=== PATIENT | male | born 1945 | race Two or more races ===

== ENCOUNTER 2025-10-21 21:49 | Inpatient (IN) | payer MEDICAID, SELFPAY ==
[2025-10-21 22:37] VITALS: BP 146/103; PULSE 108; RESP 18; TEMP 37.2; O2SAT 99; BMI 25.0
--- NOTE | 2025-10-21 22:47 | EKG_ITS ---
[facility] Test Date: 2025-10-21 Pat Name: ANUJ NEELY Department: Room: - Gender: Male Fur Tailor: : 1945 Requested By: Osbaldo Kirkland Order Number: [id number] Reading MD: Osbaldo Kirkland Measurements Intervals [place] Rate: 103 P: 184 SC: 195 QRS: 32 QRSD: 114 T: -10 QT: 341 QTc: 448 Interpretive Statements SINUS TACHYCARDIA WITH FREQUENT SUPRAVENTRICULAR PREMATURE COMPLEXES POSSIBLE LEFT ATRIAL ENLARGEMENT [-0.1mV P-WAVE IN V1/V2] MODERATE INTRAVENTRICULAR CONDUCTION DELAY [105+ ms QRS DURATION, 80+ ms Q/S IN V1/V2, NO Q AND 60+ ms R IN I/aVL/V5/V6] No previous ECG available for comparison /store/S0/[id number]
--- NOTE | 2025-10-21 22:47 | XR_ITS ---
EXAMINATION: PA chest single view TECHNIQUE: Upright PA chest single view Date and time: October 21, 2025, 11:12 p.m. INDICATIONS: Hypertension elevated blood pressure and tremors today. FINDINGS: Normal heart size Lungs are clear. Mild osteopenia IMPRESSION: No active disease
--- NOTE | 2025-10-21 22:48 | PD.EDRME ---
Rapid Medical Screening Exam E Arrival date/time: 10/21/25 21:49 80M with history of HTN and anxiety presents to ED with 2 days of elevated BP and tremors. Patient denies alcohol/drug use. Patient denies any pain. Chief Complaint: General Adult/Misc Complain Vital signs: Vital Signs Temperature 98.9 F 10/21/25 22:37 Pulse Rate 108 H 10/21/25 22:37 Respiratory Rate 18 10/21/25 22:37 Blood Pressure 146/103 H 10/21/25 22:37 Pulse Oximetry (%) 99 10/21/25 22:37 Oxygen Delivery Method Room Air 10/21/25 22:37 Exam: RRR. Very anxious. Tremors. Speech normal. Clinical Impression: anxiety/panic attack vs cardiac dysrhythmia vs alcohol/drug use vs electrolyte abnormality
[2025-10-21 23:17] LABS: Basophils # (Auto) 0.0 Thou/mm3 (0.0-0.2); Basophils % (Auto) 0 % (0-2.5); Eosinophils # (Auto) 0.1 Thou/mm3 (0.0-0.5); Eosinophils % (Auto) 1 % (0-10); Hematocrit 40.9 % (41.0-53.0); Hemoglobin 14.2 g/dL (13.5-16.0); Immature Granulocytes Auto 0.02 Thou/mm3 (0.00-0.00); Lymphocytes # (Auto) 1.5 Thou/mm3 (1.0-4.8); Lymphocytes % (Auto) 21 % (10-50); Mean Corpuscular HGB Conc 34.7 g/dl (31.0-37.0); Mean Corpuscular Hemoglobin 30.9 pg (25.0-35.0); Mean Corpuscular Volume 89 fL (80-100); Monocytes # (Auto) 0.5 Thou/mm3 (0.0-0.8); Monocytes % (Auto) 7 % (0-12); Neutrophils # (Auto) 4.8 Thou/mm3 (1.8-7.7); Neutrophils % (Auto) 69 % (37-80); Nucleated Red Blood Cell # 0.00 Thou/mm3 (0.00-0.00); Nucleated Red Blood Cell % 0 /100 WBC (0); Platelet Count 184 Thou/mm3 (140-440); RDW Standard Deviation 41.0 fL (35.1-43.9); Red Blood Count 4.59 Miln/mm3 (4.50-5.90); White Blood Count 6.9 Thou/mm3 (3.8-10.6)
[2025-10-21 23:46] LABS: Collection Type, Urine Clean Catch
[2025-10-21 23:56] LABS: Bilirubin,Urine Negative (Negative); Blood,Urine Negative (Negative); Clarity,Urine Clear (Clear/Hazy); Color,Urine Colorless (Lt Yel-Yel); Culture Indicated,Urine Not Indicated; Glucose, Urine Negative (Negative); Ketones,Urine Negative (Negative); Leukocyte Esterase,Urine Negative (Negative); Nitrite,Urine Negative (Negative); PH,Urine 6.5 (5.0-7.0); Protein,Urine Negative (Neg - Trace); RBC,Urine 1 /hpf (0-3); Specific Gravity,Urine 1.004 (1.001-1.035); Squamous Epithelial Cell,Urine < 1 /hpf (0-5); Urobilinogen,Urine Negative mg/dL (0.0-1.0); WBC,Urine < 1 /hpf (0-5)
[2025-10-22] VITALS (22 sets, daily range): BP systolic 111–155; BP diastolic 57–114; PULSE 63–123; RESP 14–97; TEMP 36.1–37.1; O2SAT 91–99
[2025-10-22 00:02] LABS: Amphetamine/Methamp Scrn,U Negative (Negative); Barbiturate Screen,Urine Negative (Negative); Benzodiazepines Screen,Urine Negative (Negative); Benzoylecgonine Screen, Ur Negative (Negative); Fentanyl Screen,Urine Negative (Negative); Opiate Screen,Urine Negative (Negative); THC Screen,Urine Negative (Negative)
[2025-10-22 00:02] LABS: Alanine Aminotransferase 23 U/L (10-49); Albumin, Serum 4.4 gm/dL (3.4-4.8); Albumin/Globulin Ratio 1.4 (1.2-2.2); Alcohol, Blood Medical < 3.0 mg/dL (0-10.0); Alkaline Phosphatase 83 U/L (46-116); Anion Gap 11 (7-16); Aspartate Amino Transferase 25 U/L (0-34); BUN/Creatinine Ratio 13 Ratio (12-20); Bilirubin,Total 0.6 mg/dL (0.3-1.2); Blood Urea Nitrogen 12 mg/dL (9-23); Calcium 9.2 mg/dL (8.3-10.6); Calcium (Corrected) 9.2 mg/dL (8.5-10.1); Carbon Dioxide 23.0 mMol/L (20.0-31.0); Chloride 104 mMol/L (98-107); Creatinine (Component) 0.9 mg/dL (0.6-1.3); Estimated Creatinine Clearance 53.9 mL/min (>60); Globulin 3.2 gm/dL (2.3-3.5); Glucose 115 mg/dL (74-106); Magnesium 2.1 mg/dL (1.6-2.6); Osmolality,Calculated 276 (275-295); Potassium 4.1 mMol/L (3.4-5.1); Sodium 138 mMol/L (136-145); Total Protein 7.6 gm/dL (5.7-8.2); Troponin I < 0.020 ng/mL (0.0-0.045); eGFR > 60 See Note
[2025-10-22] MEDS: DIAZEPAM 5 MG TABLET PO (00:21)
--- NOTE | 2025-10-22 00:57 | EDNOTE_ITS ---
ED General RME/HPI General Chief complaint: General Adult/Misc Complain Stated complaint: HIGH BP AND TREMORS Time Seen by Provider: 10/21/25 23:06 Arrival date/time: 10/21/25 21:49 RME / HPI RME / HPI narrative: 10/21/25 21:49 80M with history of HTN and anxiety presents to ED with 2 days of elevated BP and tremors. Patient denies alcohol/drug use. Patient denies any pain. DR. MCCOY MAIN ED EVALUATION: 80 y/o male with Hx of HTN and CAD presents to ED c/o sudden onset chills and suspected elevated blood pressure x approximately 6 hours. Denies BLACK, nausea, cough, runny nose, and chest pain. Patient recently returned from [facility] approximately 1.5 months ago. Patient currently takes Ativan, Amlodipine, Isosorbide, and Bystolic. Exam: RRR. Very anxious. Tremors. Speech normal. Impression: anxiety/panic attack vs cardiac dysrhythmia vs alcohol/drug use vs electrolyte abnormality Related Data Allergies Allergy/AdvReac Type Severity Reaction Status Date / Time No Known Allergies Allergy Verified 10/21/25 21:52 Review of Systems Review of Systems Systems Reviewed: All systems reviewed, normal except as documented Past Medical History Past Medical History CARDIAC: Positive Coronary Artery Disease and Hypertension ED Exam Narrative Physical exam: GEN. APPEARANCE: The patient is alert awake oriented X-3, lying down comfortably, does not look ill/toxic. Patient has good eye contact. Patient is cooperative. VITALS: All vitals were reviewed and the pulse ox is 97% on room air which is normal according to my interpretation. HEENT: Normocephalic, atraumatic. Pupils are equal and reactive. Oral mucosa is moist. Patent Nares NECK: Supple, nontender, no thyromegaly, no meningismus, no JVD CHEST: Symmetrical, atraumatic, and with equal expansion , Nontender on palpation no deformity and no crepitus. CARDIOVASCULAR: Heart regular rhythm no murmur or gallop rub or extra beats. LUNGS: Clear to auscultation bilaterally with symmetrical chest rise. No laboring tachypnea or wheezing. No intercostal subcostal retraction. No rales and no rhonchi. ABDOMEN: Soft, flat, nontender to palpation, no guarding or rebound tenderness. There are no abnormal masses palpated. Active and normal bowel sounds. EXTREMITIES: Nontender. BLE edema. No cyanosis. Patient is able to move all 4 extremities well, with full ROM and good CSM. SKIN: Warm and dry, no jaundice or rashes noted. MUSCULOSKELETAL: No lumbar or midline bony tenderness. There is no CVA tenderness. No paraspinal muscle spasm or tenderness. NEURO: Patient is THURSTON x 4, Cranial nerves II through XII grossly intact. There is no focal neurologic deficits noted. 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 Mild intention tremor to BUE, positive hand-flip, heel-toe. PSYCHIATRIC: Patient is in normal mood and affect. Course Quality Measures none Orders Category Date Time Status Bedside COVID-19 Antigen Test NOW Care 10/22/25 01:00 Active Bedside Influenza A&B Antigen Test NOW Care 10/22/25 01:[address] Screening NOW Care 10/22/25 02:57 Active EKG (ED ONLY) *Do not use* NOW Care 10/21/25 22:47 Completed EKG (ED ONLY) *Do not use* NOW Care 10/22/25 01:[address] head/brain wo con Stat Exams 10/22/25 00:58 Taken EKG (ED Only) Stat Exams 10/21/25 22:47 Draft EKG (ED Only) Stat Exams 10/22/25 01:00 Draft US venous doppler LE BI Stat Exams 10/22/25 03:00 Taken XR chest 1V portable Stat Exams 10/21/25 22:47 Completed Alcohol, Blood Medical Stat Lab 10/21/25 23:03 Completed BNP [B-Type Natriuretic Peptide] Stat Lab 10/22/25 00:00 Completed CBC Stat Lab 10/21/25 23:03 Completed Comprehensive Metabolic Panel Stat Lab 10/21/25 23:03 Completed D-Dimer Stat Lab 10/22/25 01:38 Completed Drug Screen,Urine Stat Lab 10/21/25 23:41 Completed Free T4 (Free Thyroxine) Stat Lab 10/22/25 01:38 Completed Magnesium Stat Lab 10/21/25 23:03 Completed TSH [Thyroid Stimulating Hormone] Stat Lab 10/22/25 01:38 Completed Troponin I Stat Lab 10/21/25 23:03 Completed Troponin I Stat Lab 10/22/25 01:38 Completed Urinalysis, C/S if Indicated Stat Lab 10/21/25 23:41 Completed Diazepam [Valium] Med 10/21/25 22:47 Discontinued 5 mg PO X1 ONE Vital Signs Vital signs: Vital Signs Temperature 98.9 F 10/21/25 22:37 Pulse Rate 108 H 10/21/25 22:37 Respiratory Rate 18 10/21/25 22:37 Blood Pressure 146/103 H 10/21/25 22:37 Pulse Oximetry (%) 99 10/21/25 22:37 Oxygen Delivery Method Room Air 10/21/25 22:37 Discharge Plan Plan Patient Disposition: Admit Acute Care w/in Hospital Problem List Clinical Impression: New onset atrial fibrillation, Tremor, Weakness MDM Narrative MDM hospital course (for use when minimal MDM required): Scribe Attestation: I, Kari Grant, am scribing for and in the presence of Dr. Mccoy. Provider Notation: Although this document has been carefully reviewed, there may still be some phonetic and other typographical errors. These errors are purely grammatical due to imperfections in the software program and should not be construed in any way to compromise the substance of the patient's medical care during this visit. Patient is an 80 yo male that is in the ED with concern for HTN, tremors, headache and feeling unwell. Vital signs and exam as listed. Prior provider evaluated patient. Labs EKG chest x-ray. Concern for ACS arrhythmia electrolyte abnormality metabolic disturbance. Given patient's age and tremors concern for acute intracranial pathology I added a CT of the brain. Initial labs without any acute hematologic or significant acute metabolic pathology. Troponin not elevated. EKG performed at 2305 notable for sinus rhythm, heart rate 103, frequent PVCs, normal intervals, nonspecific T wave changes, not a cardiac alert. Urinalysis and drug screen unremarkable. Chest x-ray with hyperinflation otherwise no other acute cardiopulmonary abnormalities. Ordered repeat troponin, also ordered repeat EKG. Ordered thyroid studies BNP. On my evaluation patient feeling better, concerned about his BP states that whenever his blood pressure gets elevated he gets similar symptoms but shakiness and just generally feeling unwell. States that since he arrived in [place] he has been generally feeling well. Today started feeling shaky, weak, symptoms that he usually gets when his blood pressure is elevated. He is on 3 blood pressure medications at home also has a history of hypothyroidism and takes levothyroxine. States he is very compliant with his medications. States he has a history of coronary artery disease status post stent placed many years ago. He follows very closely with his primary care doctor in [place]. Denies headache, chest pain, abdominal pain, dysuria hematuria, melena, bloody stools. No drugs or alcohol or smoking. Denies any back pain. CT brain without any acute intracranial abnormalities, troponin on 2 separate assessments normal, BNP is 270. Do not have a prior for comparison as patient does not live in the . Thyroid studies unremarkable. Repeat EKG performed at 219 in the morning, notable for atrial fibrillation, heart rate 88, normal QT, no ST elevations or depressions, not a cardiac alert, nonspecific T wave changes. Interpreted by me. Reevaluated patient, patient symptoms significantly improved. Clinical Information Provided by: patient and family (Nephew) Medical Records reviewed [facility] Medical Records additional comments: No prior ED records available for review. Meds/Rx considered, not ordered None Labs/Rad/Tests considered, not ordered None Chronic Illness/Social Conditions which may negatively complicate care or outcome(s)-explain: CHF/CAD/Cardiac illness EKG Interpretation EKG #1: EKG Interpretation: EKG done at 23:05, 103 bpm, frequent PVCs, normal intervals, non-specific T-wave changes, not a cardiac alert. - Interpreted by Dr. Adriana Mccoy EKG #2: EKG Interpretation: Repeat EKG performed at 02:19, notable for atrial fibrillation, heart rate 88, normal QT, no ST elevations or depressions, not a cardiac alert, nonspecific T wave changes. - Interpreted by Dr. Adriana Mccoy Labs Labs: interpreted by me and see narrative above Imaging Imaging interpretation: interpreted by me and see narrative above Imaging Interpretation(s): RADIOLOGY Chest X-Ray: FINDINGS: Normal heart size Lungs are clear. Mild osteopenia IMPRESSION: No active disease Head/Brain CT: Findings: There is no evidence of intracranial hemorrhage, mass effect or midline shift. There are periventricular white matter hypodensities, compatible with chronic small vessel ischemia. There is moderate volume loss. The calvarium is unre markable. The mastoid air cells and the visualized paranasal sinuses are clear. Impression: No evidence of intracranial hemorrhage, mass effect or midline shift. Periventricular chronic small vessel ischemia and volume loss. Aspect score 10. Medication Administration(s) Medication Administration History Acetaminophen (Acetaminophen 325 Mg Tablet) 650 mg PO Q6H PRN PRN Reason: Fever >100.4 Stop: 11/21/25 04:05 Amlodipine Besylate (Amlodipine Besylate 5 Mg Tablet) 5 mg PO DAILY FERNANDO Stop: 11/21/25 08:59 Aspirin (Aspirin Ec 81 Mg Tabec) 81 mg PO DAILY FERNANDO Stop: 11/21/25 08:59 Atorvastatin Calcium (Atorvastatin Calcium 10 Mg Tablet) 20 mg PO DAILY FERNANDO Stop: 11/21/25 08:59 Enoxaparin Sodium (Enoxaparin Sod Inj 100 Mg/Ml Syringe) 66 mg 1 mg/kg (66 mg) SC BID FERNANDO Stop: 11/05/25 08:59 Levothyroxine Sodium (Levothyroxine Sodium 100 Mcg Tablet) 100 mcg PO ACBR FERNANDO Stop: 11/21/25 05:59 Non-Formulary Medication (Nebivolol) 5 mg PO DAILY FERNANDO Stop: 11/21/25 08:59 Ondansetron HCl (Ondansetron Inj 2 Mg/Ml Inj 2 Ml) 4 mg IVP Q6H PRN; Protocol PRN Reason: NAUSEA OR VOMITING Stop: 11/21/25 04:05 Discontinued Medications Diazepam (Diazepam 5 Mg Tablet) 5 mg PO X1 ONE Stop: 10/21/25 22:48 Last Admin: 10/22/25 00:21 Dose: 5 mg Documented By: GEMA See above if any Consultations/Discussions re: Management Consult #1: Date/time: 10/22/25 02:59 am Physician, specialty, service, details: Discussed with Dr. Quiñonez for admission. Reviewed the patient?s HPI, PMHx, lab and/or radiology results. Discussed treatment plan. Will consult an admission to the hospitalist. Diagnosis Differential Diagnosis ED Complaint MDM: Viral Illness, Pneumonia, Hypertension, OK, Sepsis Diagnoses ruled out and/or further discussions: New onset Atrial Fibrillation, Tremor, Weakness
--- NOTE | 2025-10-22 00:58 | XR_ITS ---
Examination: CT brain head without contrast. 2-D sagittal coronal reconstructions Date and time of exam: October 22, 2025, 0119 hours INDICATIONS: Headache high blood pressure onset today CTDI: vol (mGy): 47.1 DLP: (mGycm): 915 Technique: Multiple CT axial sections of the brain have been obtained, 5 mm slice thickness. Contrast has not been administered. 2-D sagittal, coronal reconstructions have been obtained Low dose protocols were performed. One or more of the following dose reduction techniques were used; automated exposure control, adjustment of the mA and/or KV according to patient size, use of iterative reconstruction technique. Findings: No significant ventricular enlargement. Intra-axial or extra-axial hemorrhage density is not seen. No mass effect or midline shift Basal cisterns are not remarkable. Fourth ventricle is midline. Cranial vault intact. Impression: Negative for acute hemorrhage, mass effect or midline shift
--- NOTE | 2025-10-22 01:00 | EKG_ITS ---
[facility] Test Date: 2025-10-22 Pat Name: ANUJ NEELY Department: Room: - Gender: Male Manager Neonatal: : 1945 Requested By: Adriana Olson Order Number: [id number] Reading MD: Adriana Olson Measurements Intervals [place] Rate: 88 P: PA: QRS: 40 QRSD: 108 T: -16 QT: 379 QTc: 460 Interpretive Statements ATRIAL FIBRILLATION ANTEROSEPTAL MYOCARDIAL INFARCTION , OF INDETERMINATE AGE [40+ ms Q WAVE IN V1-V4] Compared to ECG 10/21/2025 23:05:32 Myocardial infarct finding now present Sinus tachycardia no longer present Intraventricular conduction delay no longer present /store/S0/[id number].pdf
[2025-10-22 01:48] LABS: B-Type Natriuretic Peptide 270 pg/mL (0-100)
--- NOTE | 2025-10-22 02:08 | PRELIM_ITS ---
CT scan of the head without intravenous contrast (axial sections with sagittal and coronal reformats) October 22, 2025 0119 hours Clinical history: Headache Comparison: None available at the time of this report. Findings: There is no evidence of intracranial hemorrhage, mass effect or midline shift. There are periventricular white matter hypodensities, compatible with chronic small vessel ischemia. There is moderate volume loss. The calvarium is unremarkable. The mastoid air cells and the visualized paranasal sinuses are clear. Impression: No evidence of intracranial hemorrhage, mass effect or midline shift. Periventricular chronic small vessel ischemia and volume loss. Aspect score 10. Report Electronically Signed By: Dennis Chen 10/22/2025 2:07:26 AM [EST]
[2025-10-22 02:10] LABS: Free T4 (Free Thyroxine) 1.37 ng/dL (0.89-1.76); Thyroid Stimulating Hormone 4.20 uIU/mL (0.55-4.78); Troponin I < 0.020 ng/mL (0.0-0.045)
--- NOTE | 2025-10-22 03:00 | XR_ITS ---
Examination: Venous duplex lower extremity sonogram, bilateral. Date and time of exam: October 22, 2025, 0404 hours INDICATIONS: High blood pressure today Technique: Multiple sonographic images of the deep venous system have been obtained. B-mode/2-D grayscale imaging of vascular structures and Doppler spectral analysis (waveforms) and color performed Both legs are examined. Findings: Deep venous systems do not demonstrate abnormal echogenicity. All visualized deep veins exhibit compressibility. All visualized deep veins exhibit augmentation. Impression: Negative for deep vein thrombosis
[2025-10-22 03:37] LABS: D-Dimer 434 ng/mL (<600)
--- NOTE | 2025-10-22 04:21 | ESHP_ITS ---
<Statement entered by Ja Gamez MD - 10/22/25 06:30> Patient is Czech-speaking, poor historian and translated with the help of cnc service engineer services on phone. A 80-year-old male with significant past medical history of hypertension, hyperlipidemia, CAD s/p PCI done almost 15 years ago by a doctor in [place] and follows with the doctor in [place] every 6 months. Reported that he flies every 6 months and does not follow any doctor in the [place]. Does not have any primary care provider. Next visit to the doctor in [place] is in February per patient. Reported that suddenly he felt that his blood pressure is increased and felt tremors following which he checked blood pressures and noted to be elevated and came to the ED for further evaluation. Denies any other complaints, including palpitation, shortness of breath. Vitals at the time of admission are significant for blood pressure 146/103 mmHg, pulse rate 108 bpm. Noted to have atrial fibrillation with controlled ventricular rate. Physical examination remains unremarkable. Labs at the time of admission are unremarkable. Urinalysis is not significant. Tested negative for drug screen. EKG showed atrial fibrillation. Head CT did not show any evidence of infarct. Bilateral venous Doppler was done that did not show any abnormality. Resume his home medications, patient using Nebivolol so just resumed it. Started on Lovenox for now and can later transition to oral anticoagulation. Echocardiogram is ordered. Will consult animal groomer. # New onset atrial fibrillation with controlled ventricular rate # History of CAD s/p PCI # Hypertension # Hyperlipidemia I have personally seen and examined the patient, agree with residents assessment and plan Patient plan of care was discussed with the attending physician, Dr. Brittney Gamez, PGY2 <Statement entered by Andriy Lugo DO - 10/22/25 06:15> Patient was seen and examined by me. After the review of the clinical data, I agree that the patient will need an admission on observation status for atrial fibrillation of unknown chronicity with associated symptoms of generalized tremors and lower extremity edema. Patient will undergo studies with echo in addition to monitoring of his heart rate and vitals to ensure safe discharge as the patient does not have close follow-up outpatient and sees a animal groomer in [place] every 6 months. Will benefit from an evaluation by cardiology inpatient. Patient could also benefit from a prescription of oral anticoagulants through a coupon or possibly samples from cardiology as he does not have insurance at this time. Plan of care discussed with patient who is in agreement. I Andriy Lugo DO, attest that I was physically present for dominique portions of evaluation, examined the patient, reviewed the labs and imaging, and discussed the plan of care and management with the residents team. I agree with the findings and plans documented above. Documentation for date of: 10/22/25 [facility] History of Present Illness History of present illness: HPI: 80-year-old Czech-speaking male past medical history of hypertension, hyperlipidemia, coronary artery disease status post stent placement 10-15 years ago, and hypothyroidism presented to the ED the evening of 10/21/2025 with chief complaint of tremors and hypertension. Patient is a poor historian. He described a 2-day history of feeling like his blood pressure was elevated with associated tremors in his hands. He denied chest pain, palpitations, shortness of breath, or syncopal events. He has never had feelings like this before. He was found to have atrial fibrillation on EKG with a rate of 88 and QTc of 460. 2 separate troponin readings were negative. Of note, the patient sees a animal groomer in [place] every 6 months and his next appointment is in February 2026. The patient was concerned about his cost of treatment and his ability to follow-up outpatient. He has no established outpatient doctor in the . It was explained to the patient that he may require anticoagulation and that evaluation by a animal groomer during this visit would be in his best interest. The patient agreed to be admitted. Patient was admitted for new onset A-fib. ED Course: * Significant vitals on arrival: BP 146/103, pulse 108, remainder vitals within normal parameters * Significant labs: Glucose 115, BNP 270 * Imaging: EKG showed atrial fibrillation on EKG with a rate of 88 and QTc of 460. Head CT pending official read. Venous Doppler lower extremity pending official read. * ED intervention: Patient received a one-time dose of diazepam 5 mg oral History: * Past medical history: As above in HPI * Surgical history: Stent placement in [place] 10-15 years ago, previous hernia repair * Social history: Occasional alcohol, denies tobacco or illicit drug use. Allergies: * No known drug allergies. Home Medications: (Pending Med Rec) * Amlodipine 5 mg daily * Aspirin 81 mg daily * Atorvastatin 20 mg daily * Levothyroxine 100 mcg daily * Nebivolol 5 mg daily CODE STATUS: Full Code Review of Systems Review of Systems Narrative Review of Systems: Review of Systems: * General: Denies fevers, chills. * HEENT: Denies headache, congestion, or sore throat. * Cardiac: Patient describes a 2-day history of feeling like his blood pressure was elevated with associated tremors in his hands. Denies chest pain or palpitations. * Pulmonary: Denies shortness of breath or cough. * GI: Denies nausea, vomiting, diarrhea, constipation, melena, or hematochezia. * : Denies dysuria, hematuria, frequency, or urgency. * MSK: Denies pain in the extremities, joints, or myalgias. * Neuro: Denies weakness, numbness, vision changes, or speech difficulty. Exam Vital Signs Temp Pulse Resp BP Pulse Ox O2 Del Method 98.1 F 93 18 127/87 H 97 Room Air 10/22/25 03:36 10/22/25 03:36 10/22/25 03:36 10/22/25 03:36 10/22/25 03:36 10/22/25 03:36 Narrative Exam General: Awake and in no acute distress. Conversational and non-toxic appearing. Neurologic: GCS 15. Alert and oriented x3, no gross neurological deficit, and patient able to move all 4 extremities. HEENT: Normocephalic, atraumatic, mucous membranes moist. Pupils reactive to light. Heart: Irregular rhythm, tachycardic rate 100-110, normal S1 and S2, no murmurs. Lungs: Clear to auscultation bilaterally with no wheezing or crackles. Abdomen: Soft, nondistended, nontender, positive bowel sounds. No guarding or rebound tenderness. Extremities: No edema. 2+ radial and dorsalis pedis pulses bilaterally. Skin: Warm. Dry. No rash or ecchymoses. Results: Labs 10/22/25 04:47 10/22/25 04:47 Labs: Short CBC 10/21/25 Range/Units 23:03 WBC 6.9 (3.8-10.6) Thou/mm3 Hgb 14.2 (13.5-16.0) g/dL Hct 40.9 L (41.0-53.0) % Plt Count 184 (140-440) Thou/mm3 BMP 10/21/25 23:03 Sodium 138 Potassium 4.1 Chloride 104 Carbon Dioxide 23.0 BUN 12 Creatinine 0.9 Glucose 115 H Calcium 9.2 Cardiac Enzymes 10/21/25 10/22/25 Range/Units 23:03 01:38 Troponin I < 0.020 < 0.020 (0.0-0.045) ng/mL Liver Function 10/21/25 Range/Units 23:03 Total Bilirubin 0.6 (0.3-1.2) mg/dL AST 25 (0-34) U/L ALT 23 (10-49) U/L Alkaline Phosphatase 83 (46-116) U/L Albumin 4.4 (3.4-4.8) gm/dL Urine 10/21/25 Range/Units 23:41 Urine Color Colorless A (Lt Yel-Yel) Urine Clarity Clear (Clear/Hazy) Urine pH 6.5 (5.0-7.0) Ur Specific [place] 1.004 (1.001-1.035) Urine Protein Negative (Neg - Trace) Urine Glucose (UA) Negative (Negative) Quality Measures Quality Measures none Advance care planning discussed with:: patient Medications Home Medications and Allergies Allergies Allergy/AdvReac Type Severity Reaction Status Date / Time No Known Allergies Allergy Verified 10/21/25 21:52 Visit Medications Acetaminophen (Acetaminophen 325 Mg Tablet) 650 mg PO Q6H PRN PRN Reason: Fever >100.4 Stop: 11/21/25 04:05 Amlodipine Besylate (Amlodipine Besylate 5 Mg Tablet) 5 mg PO DAILY FERNANDO Stop: 11/21/25 08:59 Aspirin (Aspirin Ec 81 Mg Tabec) 81 mg PO DAILY FERNANDO Stop: 11/21/25 08:59 Atorvastatin Calcium (Atorvastatin Calcium 10 Mg Tablet) 20 mg PO DAILY FERNANDO Stop: 11/21/25 08:59 Enoxaparin Sodium (Enoxaparin Sod Inj 100 Mg/Ml Syringe) 66 mg 1 mg/kg (66 mg) SC BID FERNANDO Stop: 11/05/25 08:59 Levothyroxine Sodium (Levothyroxine Sodium 100 Mcg Tablet) 100 mcg PO DAILY FERNANDO Stop: 11/21/25 08:59 Non-Formulary Medication (Nebivolol) 5 mg PO DAILY FERNANDO Stop: 11/21/25 08:59 Ondansetron HCl (Ondansetron Inj 2 Mg/Ml Inj 2 Ml) 4 mg IVP Q6H PRN; Protocol PRN Reason: NAUSEA OR VOMITING Stop: 11/21/25 04:05 Discontinued Medications Diazepam (Diazepam 5 Mg Tablet) 5 mg PO X1 ONE Stop: 10/21/25 22:48 Last Admin: 10/22/25 00:21 Dose: 5 mg Assessment & Plan Plan Summary: 80-year-old Czech-speaking male past medical history of hypertension, hyperlipidemia, coronary artery disease status post stent placement 10-15 years ago, and hypothyroidism presented to the ED the evening of 10/21/2025 with chief complaint of tremors and hypertension. Patient is a poor historian. He described a 2-day history of feeling like his blood pressure was elevated with associated tremors in his hands. He denied chest pain, palpitations, shortness of breath, or syncopal events. He has never had feelings like this before. He was found to have atrial fibrillation on EKG with a rate of 88 and QTc of 460. 2 separate troponin readings were negative. Patient was admitted for new onset A-fib. #New Onset A-fib * Patient presented with a 2-day history of feeling hypertensive with associated tremors * Patient has never had episodes like this before * Regarding potential triggers: * Pulmonary causes like COPD low on differential, patient never smoked, no wheezing on exam, though a chest x-ray was not performed * Ischemia/infarction is also an unlikely trigger, the patient has no chest pain or exertional dyspnea and there are no ST segment changes on EKG * Patient mentioned occasional alcohol use, may be considered a trigger but his alcohol level is negative * May consider thyroid medication overdose * Consider sleep apnea * Consider longstanding risk factors like hypertension and coronary artery disease * [id number] score is at least 3, strong evidence of benefit with anticoagulation * Age over 75 (+2) * Hypertension history (+1) * Follow-up coagulation data for HAS-BLED score Plan: * Therapeutic Lovenox: 1 mg/kg subcu every 12 hours * Cardiology consult * Echo #Hypertension * Per patient history * Longstanding issue may be contributing to patient's new onset A-fib * Presented with hypertension stage II 146/103 Plan: * Amlodipine 5 mg daily * Nebivolol 5 mg daily #Hypothyroidism * Per patient history * Patient takes levothyroxine * TSH 4.2, free T4 1.37 Plan: * Restarted home levothyroxine 100 mcg daily #Hyperlipidemia * Per patient history Plan: * Atorvastatin 20 mg daily * Lipid panel ordered #Coronary artery disease status post stent placement * Patient mentions that he had a stent placed in his heart in [place] 10-15 years ago * Currently takes aspirin and follows animal groomer in [place], next appointment is in February 2026 Plan: * Aspirin 81 mg daily #Lower extremity swelling? * ED physician had concern for lower extremity swelling, ordered lower extremity venous Doppler to rule out DVT Plan: * Follow-up results of lower extremity venous Doppler Hospital Maintenance: DVT ppx: Therapeutic Lovenox 1 mg/kg SQ every 12 hours Diet: Cardiac diet IV lines: Peripheral IVs Code status: Full code Dispo: Telemetry monitoring for, admitted for new onset A-fib, pending cardiology recs, started on therapeutic anticoagulation. Patient was seen and discussed with my attending physician Dr. Brittney VASQUEZ and my senior resident Dr. Vera PARKER PGY-2. Raymundo Maddox DO PGY-1.
--- NOTE | 2025-10-22 04:21 | PD.RESHP ---
Documentation for date of: 10/22/25 [facility] History of Present Illness History of present illness: HPI: 80-year-old Prydein[place]-speaking male past medical history of hypertension, hyperlipidemia, coronary artery disease status post stent placement 10-15 years ago, and hypothyroidism presented to the ED the evening of 10/21/2025 with chief complaint of tremors and hypertension. Patient is a poor historian. He described a 2-day history of feeling like his blood pressure was elevated with associated tremors in his hands. He denied chest pain, palpitations, shortness of breath, or syncopal events. He has never had feelings like this before. He was found to have atrial fibrillation on EKG with a rate of 88 and QTc of 460. 2 separate troponin readings were negative. Of note, the patient sees a toy assembly supervisor in [place] every 6 months and his next appointment is in February 2026. The patient was concerned about his cost of treatment and his ability to follow-up outpatient. He has no established outpatient doctor in the . It was explained to the patient that he may require anticoagulation and that evaluation by a toy assembly supervisor during this visit would be in his best interest. The patient agreed to be admitted. Patient was admitted for new onset A-fib. ED Course: Significant vitals on arrival: BP 146/103, pulse 108, remainder vitals within normal parameters Significant labs: Glucose 115, BNP 270 Imaging: EKG showed atrial fibrillation on EKG with a rate of 88 and QTc of 460. Head CT pending official read. Venous Doppler lower extremity pending official read. ED intervention: Patient received a one-time dose of diazepam 5 mg oral History: Past medical history: As above in HPI Surgical history: Stent placement in [place] 10-15 years ago, previous hernia repair Social history: Occasional alcohol, denies tobacco or illicit drug use. Allergies: No known drug allergies. Home Medications: (Pending Med Rec) Amlodipine 5 mg daily Aspirin 81 mg daily Atorvastatin 20 mg daily Levothyroxine 100 mcg daily Nebivolol 5 mg daily CODE STATUS: Full Code Review of Systems Review of Systems Narrative Review of Systems: Review of Systems: General: Denies fevers, chills. HEENT: Denies headache, congestion, or sore throat. Cardiac: Patient describes a 2-day history of feeling like his blood pressure was elevated with associated tremors in his hands. Denies chest pain or palpitations. Pulmonary: Denies shortness of breath or cough. GI: Denies nausea, vomiting, diarrhea, constipation, melena, or hematochezia. : Denies dysuria, hematuria, frequency, or urgency. MSK: Denies pain in the extremities, joints, or myalgias. Neuro: Denies weakness, numbness, vision changes, or speech difficulty. Exam Vital Signs Temp Pulse Resp BP Pulse Ox O2 Del Method 98.1 F 93 18 127/87 H 97 Room Air 10/22/25 03:36 10/22/25 03:36 10/22/25 03:36 10/22/25 03:36 10/22/25 03:36 10/22/25 03:36 Narrative Exam General: Awake and in no acute distress. Conversational and non-toxic appearing. Neurologic: GCS 15. Alert and oriented x3, no gross neurological deficit, and patient able to move all 4 extremities. HEENT: Normocephalic, atraumatic, mucous membranes moist. Pupils reactive to light. Heart: Irregular rhythm, tachycardic rate 100-110, normal S1 and S2, no murmurs. Lungs: Clear to auscultation bilaterally with no wheezing or crackles. Abdomen: Soft, nondistended, nontender, positive bowel sounds. No guarding or rebound tenderness. Extremities: No edema. 2+ radial and dorsalis pedis pulses bilaterally. Skin: Warm. Dry. No rash or ecchymoses. Results: Labs 10/22/25 04:47 10/22/25 04:47 Labs: Short CBC 10/21/25 Range/Units 23:03 WBC 6.9 (3.8-10.6) Thou/mm3 Hgb 14.2 (13.5-16.0) g/dL Hct 40.9 L (41.0-53.0) % Plt Count 184 (140-440) Thou/mm3 BMP 10/21/25 23:03 Sodium 138 Potassium 4.1 Chloride 104 Carbon Dioxide 23.0 BUN 12 Creatinine 0.9 Glucose 115 H Calcium 9.2 Cardiac Enzymes 10/21/25 10/22/25 Range/Units 23:03 01:38 Troponin I < 0.020 < 0.020 (0.0-0.045) ng/mL Liver Function 10/21/25 Range/Units 23:03 Total Bilirubin 0.6 (0.3-1.2) mg/dL AST 25 (0-34) U/L ALT 23 (10-49) U/L Alkaline Phosphatase 83 (46-116) U/L Albumin 4.4 (3.4-4.8) gm/dL Urine 10/21/25 Range/Units 23:41 Urine Color Colorless A (Lt Yel-Yel) Urine Clarity Clear (Clear/Hazy) Urine pH 6.5 (5.0-7.0) Ur Specific [place] 1.004 (1.001-1.035) Urine Protein Negative (Neg - Trace) Urine Glucose (UA) Negative (Negative) Quality Measures Quality Measures none Advance care planning discussed with:: patient Medications Home Medications and Allergies Allergies Allergy/AdvReac Type Severity Reaction Status Date / Time No Known Allergies Allergy Verified 10/21/25 21:52 Visit Medications Acetaminophen (Acetaminophen 325 Mg Tablet) 650 mg PO Q6H PRN PRN Reason: Fever >100.4 Stop: 11/21/25 04:05 Amlodipine Besylate (Amlodipine Besylate 5 Mg Tablet) 5 mg PO DAILY FERNANDO Stop: 11/21/25 08:59 Aspirin (Aspirin Ec 81 Mg Tabec) 81 mg PO DAILY FERNANDO Stop: 11/21/25 08:59 Atorvastatin Calcium (Atorvastatin Calcium 10 Mg Tablet) 20 mg PO DAILY FERNANDO Stop: 11/21/25 08:59 Enoxaparin Sodium (Enoxaparin Sod Inj 100 Mg/Ml Syringe) 66 mg 1 mg/kg (66 mg) SC BID FERNADNO Stop: 11/05/25 08:59 Levothyroxine Sodium (Levothyroxine Sodium 100 Mcg Tablet) 100 mcg PO DAILY FERNANDO Stop: 11/21/25 08:59 Non-Formulary Medication (Nebivolol) 5 mg PO DAILY FERNANDO Stop: 11/21/25 08:59 Ondansetron HCl (Ondansetron Inj 2 Mg/Ml Inj 2 Ml) 4 mg IVP Q6H PRN; Protocol PRN Reason: NAUSEA OR VOMITING Stop: 11/21/25 04:05 Discontinued Medications Diazepam (Diazepam 5 Mg Tablet) 5 mg PO X1 ONE Stop: 10/21/25 22:48 Last Admin: 10/22/25 00:21 Dose: 5 mg Assessment & Plan Plan Summary: 80-year-old Prydeinig-speaking male past medical history of hypertension, hyperlipidemia, coronary artery disease status post stent placement 10-15 years ago, and hypothyroidism presented to the ED the evening of 10/21/2025 with chief complaint of tremors and hypertension. Patient is a poor historian. He described a 2-day history of feeling like his blood pressure was elevated with associated tremors in his hands. He denied chest pain, palpitations, shortness of breath, or syncopal events. He has never had feelings like this before. He was found to have atrial fibrillation on EKG with a rate of 88 and QTc of 460. 2 separate troponin readings were negative. Patient was admitted for new onset A-fib. #New Onset A-fib Patient presented with a 2-day history of feeling hypertensive with associated tremors Patient has never had episodes like this before Regarding potential triggers: Pulmonary causes like COPD low on differential, patient never smoked, no wheezing on exam, though a chest x-ray was not performed Ischemia/infarction is also an unlikely trigger, the patient has no chest pain or exertional dyspnea and there are no ST segment changes on EKG Patient mentioned occasional alcohol use, may be considered a trigger but his alcohol level is negative May consider thyroid medication overdose Consider sleep apnea Consider longstanding risk factors like hypertension and coronary artery disease [id number] score is at least 3, strong evidence of benefit with anticoagulation Age over 75 (+2) Hypertension history (+1) Follow-up coagulation data for HAS-BLED score Plan: Therapeutic Lovenox: 1 mg/kg subcu every 12 hours Cardiology consult Echo #Hypertension Per patient history Longstanding issue may be contributing to patient's new onset A-fib Presented with hypertension stage II 146/103 Plan: Amlodipine 5 mg daily Nebivolol 5 mg daily #Hypothyroidism Per patient history Patient takes levothyroxine TSH 4.2, free T4 1.37 Plan: Restarted home levothyroxine 100 mcg daily #Hyperlipidemia Per patient history Plan: Atorvastatin 20 mg daily Lipid panel ordered #Coronary artery disease status post stent placement Patient mentions that he had a stent placed in his heart in [place] 10-15 years ago Currently takes aspirin and follows toy assembly supervisor in [place], next appointment is in February 2026 Plan: Aspirin 81 mg daily #Lower extremity swelling? ED physician had concern for lower extremity swelling, ordered lower extremity venous Doppler to rule out DVT Plan: Follow-up results of lower extremity venous Doppler Hospital Maintenance: DVT ppx: Therapeutic Lovenox 1 mg/kg SQ every 12 hours Diet: Cardiac diet IV lines: Peripheral IVs Code status: Full code Dispo: Telemetry monitoring for, admitted for new onset A-fib, pending cardiology recs, started on therapeutic anticoagulation. Patient was seen and discussed with my attending physician Dr. Brittney VASQUEZ and my senior resident Dr. Vera PARKER PGY-2. Raymundo Maddox DO PGY-1.
[2025-10-22 05:00] LABS: Basophils # (Auto) 0.0 Thou/mm3 (0.0-0.2); Basophils % (Auto) 0 % (0-2.5); Eosinophils # (Auto) 0.1 Thou/mm3 (0.0-0.5); Eosinophils % (Auto) 1 % (0-10); Hematocrit 41.2 % (41.0-53.0); Hemoglobin 14.0 g/dL (13.5-16.0); Immature Granulocytes Auto 0.02 Thou/mm3 (0.00-0.00); Lymphocytes # (Auto) 1.6 Thou/mm3 (1.0-4.8); Lymphocytes % (Auto) 22 % (10-50); Mean Corpuscular HGB Conc 34.0 g/dl (31.0-37.0); Mean Corpuscular Hemoglobin 30.2 pg (25.0-35.0); Mean Corpuscular Volume 89 fL (80-100); Monocytes # (Auto) 0.5 Thou/mm3 (0.0-0.8); Monocytes % (Auto) 6 % (0-12); Neutrophils # (Auto) 5.2 Thou/mm3 (1.8-7.7); Neutrophils % (Auto) 70 % (37-80); Nucleated Red Blood Cell # 0.00 Thou/mm3 (0.00-0.00); Nucleated Red Blood Cell % 0 /100 WBC (0); Platelet Count 189 Thou/mm3 (140-440); RDW Standard Deviation 40.8 fL (35.1-43.9); Red Blood Count 4.64 Miln/mm3 (4.50-5.90); White Blood Count 7.4 Thou/mm3 (3.8-10.6)
--- NOTE | 2025-10-22 05:04 | PRELIM_ITS ---
Bilateral lower extremity venous Doppler ultrasound with wave Doppler spectral analysis. October 22, 2025 0404 hours Clinical history: DVT Technique: Duplex scan of the bilateral lower extremity deep venous systems was performed utilizing 2D grayscale imaging, Doppler spectral analysis, and color flow Doppler with compression. Comparison: No prior study is available for comparison available at the time of this report. Findings: Combs scale, color flow, and spectral Doppler evaluation of the lower extremity deep veins was performed. Right: The common femoral, superficial femoral, and popliteal veins are patent and compressible. Normal respiratory variation is noted. There is no evidence of occlusive or nonocclusive thrombus. The great saphenous vein is patent at the level of the saphenofemoral junction. Left: The common femoral, superficial femoral, and popliteal veins are patent and compressible. Normal respiratory variation is noted. There is no evidence of occlusive or nonocclusive thrombus. The great saphenous vein is patent at the level of the saphenofemoral junction. Impression: No sonographic evidence of deep venous thrombosis in both lower extremities. Report Electronically Signed By: Dennis Chen 10/22/2025 5:03:46 AM [EST]
[2025-10-22 05:21] LABS: Alanine Aminotransferase 20 U/L (10-49); Albumin, Serum 4.5 gm/dL (3.4-4.8); Albumin/Globulin Ratio 1.6 (1.2-2.2); Alkaline Phosphatase 85 U/L (46-116); Anion Gap 11 (7-16); Aspartate Amino Transferase 20 U/L (0-34); BUN/Creatinine Ratio 11 Ratio (12-20); Bilirubin,Total 0.9 mg/dL (0.3-1.2); Blood Urea Nitrogen 10 mg/dL (9-23); Calcium 8.8 mg/dL (8.3-10.6); Calcium (Corrected) 8.8 mg/dL (8.5-10.1); Carbon Dioxide 24.3 mMol/L (20.0-31.0); Cardiac Risk Estimate 2.2 RATIO (4.0-6.7); Chloride 110 mMol/L (98-107); Cholesterol 123 mg/dL (132-200); Creatinine (Component) 0.9 mg/dL (0.6-1.3); Estimated Creatinine Clearance 53.9 mL/min (>60); Globulin 2.8 gm/dL (2.3-3.5); Glucose 110 mg/dL (74-106); HDL Cholesterol 55 mg/dL (40-60); LDL Cholesterol,Calculated 59 mg/dL (0-130); Magnesium 2.2 mg/dL (1.6-2.6); Osmolality,Calculated 288 (275-295); Potassium 3.7 mMol/L (3.4-5.1); Sodium 145 mMol/L (136-145); Thyroid Stimulating Hormone 4.02 uIU/mL (0.55-4.78); Total Protein 7.3 gm/dL (5.7-8.2); Triglycerides 47 mg/dL (30-150); eGFR > 60 See Note
[2025-10-22 06:06] LABS: INR 1.0 (0.9-1.3); Partial Thromboplastin Time 26.9 Seconds (22.0-36.0); Prothrombin Time 11.1 Seconds (9.0-12.2)
--- NOTE | 2025-10-22 06:33 | ECHO_ITS ---
Patient Info Name: Jose Solitario Age: 80 years : 1945 Gender: Male Ht: 163 cm Wt: 66 kg BSA: 1.74 m2 BP: 136 / 91 mmHg HR: 86 bpm Heart Rhythm: Atrial Fibrillation Exam Date: 10/22/2025 4:35 PM Admit Date: 10/22/2025 Site: [facility] Room Number: [id number] Patient Status: I Exam Type: CA echo doppler complete Historical Interpreter: Stephanie Dorman Ordering Physician: Ja Gamez Study Info Indications New onset afib - Primary Location: S2NX Left Ventricular Outflow Tract Name Value Normal LVOT 2D LVOT Diameter 1.9 cm LVOT Doppler LVOT Peak Velocity 62 cm/s LVOT Mean Gradient 1 mmHg LVOT VTI 12 cm LVOT VTI/AV VTI Ratio 0.7 LVOT Stroke Volume 33 ml Pulmonic Valve Name Value Normal PV Doppler PV Peak Velocity 75 cm/s PV Regurgitation Doppler DC Peak End Diastolic Velocity 179 cm/s Mitral Valve Name Value Normal MV Doppler MV Mean Gradient [address] [facility] 752 cm/s2 MV PHT 38 ms MV Area (PHT) 5.8 cm2 4.0-5.0 MV Area (Cont Eq VTI) 1.2 cm2 MV Diastolic Function MV E Peak Velocity 98 cm/s Tricuspid Valve Name Value Normal TV Regurgitation Doppler TR Peak Velocity 199 cm/s Estimated PAP/RSVP RA Pressure 3 mmHg <=5 PA Systolic Pressure 19 mmHg <36 RV Systolic Pressure 19 mmHg <36 Aortic Valve Name Value Normal AV 2D/MM AV Cusp Sep (MM) 0.9 cm AV Doppler AV Peak Velocity 112 cm/s AV Mean Gradient 3 mmHg AV VTI 18 cm AV Area (Cont Eq VTI) 1.9 cm2 >=3.0 AV Area (Cont Eq Stan) 1.6 cm2 AV DI (Stan) 0.55 AV Regurgitation 2D LVOT Area 2.8 cm2 AV Regurgitation Doppler AR Decel [facility] 138 cm/s2 AR PHT 514 ms Ventricles Name Value Normal LV Dimensions 2D/MM IVS Diastolic Thickness (2D) 1.1 cm 0.6-1.0 LVID Diastole (2D) 4.8 cm 4.2-5.8 LVIW Diastolic Thickness (2D) 1.1 cm 0.6-1.0 LVID Systole (2D) 3.0 cm 2.5-4.0 LVOT Diameter 1.9 cm LV Mass (2D Cubed) 193.96 g 88.00-224.00 LV Mass Index (2D Cubed) 111 g/m2 49-115 Relative Wall Thickness (2D) 0.46 <=0.42 IVS/LVIW Diastolic Thickness (2D) 1.00 0.00-1.50 LV Fractional Shortening/Ejection Fraction 2D/MM LV Fractional Shortening (2D) 38 % 25-43 LV EF (2D Teichholz) 67 % LV Diastolic Volume (4C MOD) 66 ml LV EF (4C MOD) 55 % LV Diastolic Volume (2C MOD) 87 ml LV EF (2C MOD) 58 % LV Diastolic Volume (BP MOD) 75 ml 62-150 LV Diastolic Volume Index (BP MOD) 43 ml/m2 34-74 LV Systolic Volume (BP MOD) 34 ml 21-61 LV Systolic Volume Index (BP MOD) 20 ml/m2 11-31 LV EF (BP MOD) 54 % 52-72 LV Diastolic Length (4C) 7.4 cm LV Systolic Length (4C) 6.2 cm LV Stroke Volume (4C MOD) 36 ml Atria Name Value Normal LA Dimensions LA Volume (4C A-L) 52 ml LA Volume (BP A-L) 70 ml Left Ventricle Left ventricular chamber dimension is normal. Left ventricular systolic function is normal with visually estimated ejection fraction of 55-60%. There is mild concentric hypertrophy noted in the left ventricle. Left ventricular segmental wall motion is normal. There is indeterminate diastolic function in the left ventricle. Right Ventricle Right ventricular chamber dimension is mildly enlarged. Right ventricular systolic function is normal. Flattening of the ventricular septum in mid to late systole consistent with right ventricular volume overload. Left Atrium Left atrial chamber dimension is mildly enlarged. Right Atrium Right atrial chamber dimension is normal. Aortic Valve The aortic valve is trileaflet. There is mild aortic valve sclerosis. There is no aortic valve stenosis with a peak velocity of 112 cm/s, mean gradient of 3 mmHg, and aortic valve area of 1.9 cm2. There is mild aortic valve regurgitation. Pulmonic Valve The pulmonic valve is normal. There is no pulmonic valve stenosis. There is trace pulmonic regurgitation. Mitral Valve The mitral valve has thickened leaflets. There is no mitral valve stenosis. There is mild to moderate mitral valve regurgitation. Tricuspid Valve The tricuspid valve leaflets are normal. There is no tricuspid valve stenosis. There is mild tricuspid valve regurgitation. No pulmonary hypertension, estimated pulmonary arterial systolic pressure is 19 mmHg and systemic blood pressure of 136 mmHg in systole. Pericardium/Pleural The pericardium appears normal. There is no pericardial effusion. No pleural effusion visualized. Inferior Vena Cava Normal inferior vena cava with >50% collapse upon inspiration consistent with normal right atrial pressure, 3 mmHg. Aorta The aortic measurements are indexed to age and body surface area. The aortic root at the sinus of Valsalva is not well visualized. The prox ascending aorta is not well visualized. Summary 1. Left ventricle size is normal and systolic function is normal. Estimated ejection fraction is 55-60%. There is indeterminate diastolic function. There is mild concentric hypertrophy noted. 2. Right ventricle chamber size is mildly enlarged and systolic function is normal. Estimated RVSP is 19 mmHg. 3. Flattening of the ventricular septum in mid to late systole consistent with right ventricular volume overload. 4. There is mild aortic valve sclerosis with no stenosis and mild regurgitation. 5. There is mild to moderate mitral valve regurgitation. Mitral valve thickening. 6. There is mild tricuspid valve regurgitation and trace Pulmonic regurgitation. 7. The left atrium is mildly enlarged. The right atrium is normal. 8. Normal IVC with estimated RA pressure 3 mmHg. Report Signatures Finalized by Bogdan Schofield on 10/22/2025 11:20 PM
[2025-10-22] MEDS: LEVOTHYROXINE SODIUM 100 MCG TABLET PO (07:50)
[2025-10-22] MEDS: ASPIRIN EC 81 MG TABEC PO (09:18)
[2025-10-22] MEDS: METOPROLOL SUCCINATE XL 25 MG TABCR PO (09:18)
[2025-10-22] MEDS: ATORVASTATIN CALCIUM 10 MG TABLET 20 MG PO (09:19)
[2025-10-22] MEDS: ENOXAPARIN SOD INJ 100 MG/ML SYRINGE 66 MG SC (09:20)
--- NOTE | 2025-10-22 09:38 | PC.NURSE ---
CALLED DR IVERSON TO NOTIFY PATIENT'S HEART RYTHYM CHANGED TO A FLUTTER. NO FURTHER ORDERS. PATIENT DENIES CHEST PAIN
--- NOTE | 2025-10-22 11:38 | PC.NURSE ---
CALLED DR. IVERSON TO NOTIFY PATIENT IS STATING HIS LEFT CHEST IS HAVING SOME PRESSURE. PATIENT STATES HE ALSO FELT SOME PALPITATIONS. NO NEW ORDERS RECEIVED. PATIENT'S HEART RATE STILL 90'S AND RHYTHM A FLUTTER.
--- NOTE | 2025-10-22 12:40 | ESPR_ITS ---
<Statement entered by Rodriguez Ta MD - 10/22/25 14:25> Overnight admission for new onset A-fib. Seen and examined at bedside in ED and patient resting comfortably in bed. Denies any chest pain, shortness of breath. Vital signs stable and heart rate less than 110, on room air, and afebrile. CBC unremarkable, CHEM panel largely unremarkable. Cardiology consulted and will follow-up recommendations. Echo ordered and will follow-up with results. Not requiring any rate controlling medications at this time and has not received any since coming to the ED or since admission. ----- Note reviewed and agree with care plan as documented. Please refer to the note below for further details. Plan discussed with attending physician Dr. Jatinder Ta MD PGY-2 Internal Medicine Documentation for date of: 10/22/25 Subjective Subjective Interval history: Patient this morning resting in bed in the ED, no acute distress. Patient states he had some epigastric pain earlier which was relieved with food Patient is here for new onset afib rvr, rate has been controlled this morning with metoprolol Patient has A.C. control with enoxaparin therapeutic dosaging. Cardio consulted, will f/u recs Exam Vital Signs Temp Pulse Resp BP Pulse Ox O2 Del Method 98.2 F 81 19 135/82 H 98 Room Air 10/22/25 10:26 10/22/25 10:26 10/22/25 10:26 10/22/25 10:26 10/22/25 10:26 10/22/25 10:26 Narrative Exam General: No acute distress; A&Ox3 Skin: Warm, dry, intact, no obvious rash. HENT: NCAT, EOMI/PERRL, not icteric. External ears normal. No rhinorrhea. Moist mucous membranes Cardiovascular: Irregular rhythm, no murmur, +S1/S2. Respiratory: Lungs CTAB GI: Soft, nontender, non-distended. No guarding or rebound tenderness. : No suprapubic tenderness. No flank tenderness bilaterally. Extremities: no edema, no cyanosis, no clubbing. Extremity pulses present Neuro: Grossly nonfocal. Moving all 4 extremities. CN not formally tested but appear grossly intact. Psychiatric: Cooperative, appropriate affect. Objective Labs 10/23/25 05:30 10/23/25 05:30 Labs: Laboratory Results - last 24 hr 10/21/25 10/21/25 10/22/25 23:03 23:41 00:00 WBC 6.9 RBC 4.59 Hgb 14.2 Hct 40.9 L MCV 89 MCH 30.9 MCHC 34.7 RDW Std Deviation 41.0 Plt Count 184 Neut % (Auto) 69 Lymph % (Auto) 21 [place] % (Auto) 7 Eos % (Auto) 1 Baso % (Auto) 0 Neut # (Auto) 4.8 Lymph # (Auto) 1.5 [place] # (Auto) 0.5 Eos # (Auto) 0.1 Baso # (Auto) 0.0 Immature Gran # (Auto) 0.02 H Absolute Nucleated RBC 0.00 Immature Gran % 0 Nucleated RBC % 0 PT INR APTT D-Dimer Sodium 138 Potassium 4.1 Chloride 104 Carbon Dioxide 23.0 Anion Gap 11 BUN 12 Creatinine 0.9 Estim Creat Clear Calc 53.9 L eGFR > 60 BUN/Creatinine Ratio 13 Glucose 115 H Calculated Osmolality 276 Calcium 9.2 Corrected Calcium 9.2 Magnesium 2.1 Total Bilirubin 0.6 AST 25 ALT 23 Alkaline Phosphatase 83 Troponin I < 0.020 B-Natriuretic Peptide 270 H Total Protein 7.6 Albumin 4.4 Globulin 3.2 Albumin/Globulin Ratio 1.4 Triglycerides Cholesterol LDL Cholesterol, Calc HDL Cholesterol Cholesterol/HDL Ratio TSH Free T4 Ur Collection Type Clean Catch Urine Color Colorless A Urine Clarity Clear Urine pH 6.5 Ur Specific Parsons 1.004 Urine Protein Negative Urine Glucose (UA) Negative Urine Ketones Negative Urine Blood Negative Urine Nitrite Negative Urine Bilirubin Negative Urine Urobilinogen (Auto) Negative Ur Leukocyte Esterase Negative Urine RBC 1 Urine WBC < 1 Ur Squamous Epith Cells < 1 Urine Bacteria None Ur Culture Indicated? Not Indicated Urine Opiates Screen Negative Urine Fentanyl Screen Negative Ur Barbiturates Screen Negative U Amphetamin/Meth Scrn Negative U Benzodiazepines Scrn Negative U Cocaine Metab Screen Negative U Marijuana (THC) Screen Negative Ethyl Alcohol < 3.0 10/22/25 10/22/25 01:38 04:47 WBC 7.4 RBC 4.64 Hgb 14.0 Hct 41.2 MCV 89 MCH 30.2 MCHC 34.0 RDW Std Deviation 40.8 Plt Count 189 Neut % (Auto) 70 Lymph % (Auto) 22 [place] % (Auto) 6 Eos % (Auto) 1 Baso % (Auto) 0 Neut # (Auto) 5.2 Lymph # (Auto) 1.6 [place] # (Auto) 0.5 Eos # (Auto) 0.1 Baso # (Auto) 0.0 Immature Gran # (Auto) 0.02 H Absolute Nucleated RBC 0.00 Immature Gran % 0 Nucleated RBC % 0 PT 11.1 INR 1.0 APTT 26.9 D-Dimer 434 Sodium 145 Potassium 3.7 Chloride 110 H Carbon Dioxide 24.3 Anion Gap 11 BUN 10 Creatinine 0.9 Estim Creat Clear Calc 53.9 L eGFR > 60 BUN/Creatinine Ratio 11 L Glucose 110 H Calculated Osmolality 288 Calcium 8.8 Corrected Calcium 8.8 Magnesium 2.2 Total Bilirubin 0.9 AST 20 ALT 20 Alkaline Phosphatase 85 Troponin I < 0.020 B-Natriuretic Peptide Total Protein 7.3 Albumin 4.5 Globulin 2.8 Albumin/Globulin Ratio 1.6 Triglycerides 47 Cholesterol 123 L LDL Cholesterol, Calc 59 HDL Cholesterol 55 Cholesterol/HDL Ratio 2.2 L TSH 4.20 4.02 Free T4 1.37 Ur Collection Type Urine Color Urine Clarity Urine pH Ur Specific Parsons Urine Protein Urine Glucose (UA) Urine Ketones Urine Blood Urine Nitrite Urine Bilirubin Urine Urobilinogen (Auto) Ur Leukocyte Esterase Urine RBC Urine WBC Ur Squamous Epith Cells Urine Bacteria Ur Culture Indicated? Urine Opiates Screen Urine Fentanyl Screen Ur Barbiturates Screen U Amphetamin/Meth Scrn U Benzodiazepines Scrn U Cocaine Metab Screen U Marijuana (THC) Screen Ethyl Alcohol Quality Measures Quality Measures VTE prophylaxis Advance care planning discussed with:: patient Assessment & Plan Assessment Current Active Medications: Generic Name Dose Route Start Last Admin Trade Name Freq PRN Reason Stop Dose Admin Acetaminophen 650 mg 10/22/25 04:06 Acetaminophen 325 Mg Tablet PO 11/21/25 04:05 Q6H PRN Fever >100.4 Amlodipine Besylate 5 mg 10/22/25 09:00 10/22/25 09:19 Amlodipine Besylate 5 Mg Tablet PO 11/21/25 08:59 5 mg DAILY FERNANDO Administration Aspirin 81 mg 10/22/25 09:00 10/22/25 09:18 Aspirin Ec 81 Mg Tabec PO 11/21/25 08:59 81 mg DAILY FERNANDO Administration Atorvastatin Calcium 20 mg 10/22/25 09:00 10/22/25 09:19 Atorvastatin Calcium 10 Mg Tablet PO 11/21/25 08:59 20 mg DAILY FERNANDO Administration Enoxaparin Sodium 66 mg 10/22/25 09:00 10/22/25 09:20 Enoxaparin Sod Inj 100 Mg/Ml Syringe 1 mg/kg (66 mg) 11/05/25 08:59 66 mg SC Administration BID FERNANDO Levothyroxine Sodium 100 mcg 10/22/25 08:00 10/22/25 07:50 Levothyroxine Sodium 100 Mcg Tablet PO 11/21/25 07:59 100 mcg ACBR FERNANDO Administration Metoprolol Succinate 25 mg 10/22/25 09:00 10/22/25 09:18 Metoprolol Succinate Xl 25 Mg Tabcr PO 11/21/25 08:59 25 mg QDAY FERNANDO Administration Ondansetron HCl 4 mg 10/22/25 04:06 Ondansetron Inj 2 Mg/Ml Inj 2 Ml IVP 11/21/25 04:05 Q6H PRN NAUSEA OR VOMITING Protocol Plan 80-year-old [place]-speaking male past medical history of hypertension, hyperlipidemia, coronary artery disease status post stent placement 10-15 years ago, and hypothyroidism presented to the ED the evening of 10/21/2025 with chief complaint of tremors and hypertension. Patient is a poor historian. He described a 2-day history of feeling like his blood pressure was elevated with associated tremors in his hands. He denied chest pain, palpitations, shortness of breath, or syncopal events. He has never had feelings like this before. Patient was admitted for new onset A-fib. #New Onset A-fib Patient presented with a 2-day history of feeling hypertensive with associated tremors Patient has never had episodes like this before Regarding potential triggers: * Pulmonary causes like COPD low on differential, patient never smoked, no wheezing on exam, though a chest x-ray was not performed * Ischemia/infarction is also an unlikely trigger, the patient has no chest pain or exertional dyspnea and there are no ST segment changes on EKG * Patient mentioned occasional alcohol use, may be considered a trigger but his alcohol level is negative * May consider thyroid medication overdose * Consider sleep apnea * Consider longstanding risk factors like hypertension and coronary artery disease EKG with a rate of 88 and QTc of 460 2 separate troponin readings were negative [id number] score of 3 HAS-BLED score of 3 Plan: -Therapeutic Lovenox: 1 mg/kg subcu every 12 hours -Cardiology consult, appreciate recs -Echo ordered #Hypertension Per patient history Longstanding issue may be contributing to patient's new onset A-fib Presented with hypertension stage II 146/103 Plan: -Amlodipine 5 mg daily -Nebivolol 5 mg daily #Hypothyroidism Per patient history Patient takes levothyroxine TSH 4.2, free T4 1.37 Plan: -Restarted home levothyroxine 100 mcg daily #Hyperlipidemia Per patient history Lipid panel unremarkable Plan: -Atorvastatin 20 mg daily #Coronary artery disease status post stent placement Patient mentions that he had a stent placed in his heart in [place] 10-15 years ago Currently takes aspirin and follows [facility] in [place], next appointment is in February 2026 Plan: -Aspirin 81 mg daily #Lower extremity swelling ED physician had concern for lower extremity swelling, ordered lower extremity venous Doppler to rule out DVT Plan: -US LE negative for DVT Hospital Maintenance: DVT ppx: Therapeutic Lovenox 1 mg/kg SQ every 12 hours Diet: Cardiac diet IV lines: Peripheral IVs Code status: Full code Dispo: Telemetry monitoring for, admitted for new onset A-fib, pending cardiology recs, started on therapeutic anticoagulation. Patient plan of care was discussed with the attending physician, Dr. Tobias & senior resident Dr. Keyon Soto MD PGY-1 Attending Provider Attestation/Addendum I have examined the patient, reviewed labs and imaging findings, discussed the case with the resident(s), and reviewed entered orders. I agree with the plan of care as outlined in this note. Dr. Jatinder MD
--- NOTE | 2025-10-22 14:43 | PC.NURSE ---
REPORT CALLED TO TOM TA
--- NOTE | 2025-10-22 16:14 | ESCONSULT_ITS ---
<Statement entered by Bogdan Schofield MD - 10/22/25 23:39> I personally examined evaluated this patient with resident physician PGY 2 Dr. Tomlinson patient appears to be doing fairly well A-fib rate controlled possible new onset versus recent onset not sure patient is a visitor from [place] mostly lives in [place] occasional visits has a cardiac workup and remote history of PCI many years ago in [place] currently having no chest pain shortness of A-fib with asymptomatic rate control. Patient does not need to be in the hospital any longer can be discharged home with rate control and anticoagulation depending on the patient's compliance [id number] was around 3. Recommended Eliquis however patient may choose what ever option and risk of stroke is quite low 3% hence and the patient desires for anticoagulation [employer] that is fine with me as well but he is recommended to take either warfarin or Eliquis. No need for further workup cardiac echo was already performed showed evidence of mild dilated left atrium mild mitral regurgitation mild aortic regurgitation no significant LV dysfunction. Will sign off the case for now if there is any problems please recontact us HPI Data of Consult Requesting Physician: Andriy Lugo DO Admitting Provider: Andriy Lugo DO Attending Provider: Andriy Lugo DO Primary Care Provider: Physician No Primary/Family Consult Narrative Reason for consult: new onset A fib History of present illness: Patient is 80 yr male with PMH of hypertension, hyperlipidemia, coronary artery disease status post stent placement 10-15 years ago, and hypothyroidism presented to the ED the evening of 10/21/2025 with chief complaint of tremors and hypertension. Stated that he abruptly felt unwell like body was shaking, warm, palpitation, possibly high blood pressure. He is very poor historian even with language interpreter services used. Patient cannot recall past medical history well. Says that some family member checks blood pressure at home. Unable to share average blood pressure number. Believes that it is well-controlled because of drinking water. At bedside all of his symptoms had resolved. Patient apparently ice to [place] every 6 months to follow-up with his lead neurodiagnostic technologist. Has not established any care with PCP or specialist here in the [place]. Does not believe to be ever diagnosed with atrial fibrillation in the past. He denies any excessive drinking, smoking, drug use. On presentation vitals notable for heart rate 108, irregularly irregular rhythm ,blood pressure 146/103, RR 18, saturating well on room air. He was hemodynamically stable. Additional EKG demonstrated patient to be in atrial fibrillation but rate controlled at 103. UA was not significant, U tox negative for any substances. Bilateral venous Doppler was done that did not show any abnormality. Troponins were negative. cc:: cc: Andriy Lugo DO Review of Systems Review of Systems Systems Reviewed: All systems reviewed, normal except as documented Exam Vital Signs Temp Pulse Resp BP Pulse Ox O2 Del Method 98.4 F 115 H 19 133/80 H 95 Room Air 10/22/25 12:49 10/22/25 12:49 10/22/25 12:49 10/22/25 12:49 10/22/25 12:49 10/22/25 12:49 Narrative Exam General: Alert and oriented x3. No acute distress, cooperative HEENT: NCAT, No JVD noted. Mucosa dry. Pupils are equal and reactive to light bilaterally, conjunctival injection bilaterally Cardiovascular: Normal S1 and S2. Irregular rhythm, regular rate Respiratory: Lungs are clear to auscultation bilaterally. No wheezing or crackles heard. Abdomen: Soft, nontender, not distended, normal bowel sounds. Skin: Warm to touch, dry, no rashes noted Musculoskeletal: No gross injuries. Able to move all 4 extremities. No pitting edema Neuro: Alert and oriented x3. No focal neuro deficits. Psych: Normal affect and mood Results Labs 10/22/25 04:47 10/22/25 04:47 Labs: Short CBC 10/21/25 10/22/25 Range/Units 23:03 04:47 WBC 6.9 7.4 (3.8-10.6) Thou/mm3 Hgb 14.2 14.0 (13.5-16.0) g/dL Hct 40.9 L 41.2 (41.0-53.0) % Plt Count 184 189 (140-440) Thou/mm3 BMP 10/21/25 10/22/25 23:03 04:47 Sodium 138 145 Potassium 4.1 3.7 Chloride 104 110 H Carbon Dioxide 23.0 24.3 BUN 12 10 Creatinine 0.9 0.9 Glucose 115 H 110 H Calcium 9.2 8.8 Cardiac Enzymes 10/21/25 10/22/25 Range/Units 23:03 01:38 Troponin I < 0.020 < 0.020 (0.0-0.045) ng/mL Liver Function 10/21/25 10/22/25 Range/Units 23:03 04:47 Total Bilirubin 0.6 0.9 (0.3-1.2) mg/dL AST 25 20 (0-34) U/L ALT 23 20 (10-49) U/L Alkaline Phosphatase 83 85 (46-116) U/L Albumin 4.4 4.5 (3.4-4.8) gm/dL Urine 10/21/25 Range/Units 23:41 Urine Color Colorless A (Lt Yel-Yel) Urine Clarity Clear (Clear/Hazy) Urine pH 6.5 (5.0-7.0) Ur Specific [place] 1.004 (1.001-1.035) Urine Protein Negative (Neg - Trace) Urine Glucose (UA) Negative (Negative) Quality Measures Quality Measures VTE prophylaxis Advance care planning discussed with:: patient Medications Home Medications and Allergies Home Medications ?Medication ?Instructions ?Recorded ?Confirmed ?Type alprazolam 0.25 mg tablet 0.25 mg PO QDAY 10/22/25 History amlodipine 5 mg tablet 5 mg PO QDAY 10/22/25 History atorvastatin 20 mg tablet (Lipitor) 20 mg PO QPM 10/2210/22/25 History isosorbide mononitrate 10 mg tablet 20 mg PO BID 10/2210/22/25 History melatonin 5 mg capsule mg 10/22/25 History montelukast 10 mg tablet 10 mg PO QDAY 10/22/2510/22 History nebivolol 5 mg tablet 2.5 mg PO .q 12 10/22/25 History Allergies Allergy/AdvReac Type Severity Reaction Status Date / Time No Known Allergies Allergy Verified 10/21/25 21:52 Visit Medications Acetaminophen (Acetaminophen 325 Mg Tablet) 650 mg PO Q6H PRN PRN Reason: Fever >100.4 Stop: 11/21/25 04:05 Amlodipine Besylate (Amlodipine Besylate 5 Mg Tablet) 5 mg PO DAILY [facility] Stop: 11/21/25 08:59 Last Admin: 10/22/25 09:19 Dose: 5 mg Aspirin (Aspirin Ec 81 Mg Tabec) 81 mg PO DAILY [facility] Stop: 11/21/25 08:59 Last Admin: 10/22/25 09:18 Dose: 81 mg Atorvastatin Calcium (Atorvastatin Calcium 10 Mg Tablet) 20 mg PO DAILY [facility] Stop: 11/21/25 08:59 Last Admin: 10/22/25 09:19 Dose: 20 mg Enoxaparin Sodium (Enoxaparin Sod Inj 100 Mg/Ml Syringe) 66 mg 1 mg/kg (66 mg) SC BID [facility] Stop: 11/05/25 08:59 Last Admin: 10/22/25 09:20 Dose: 66 mg Levothyroxine Sodium (Levothyroxine Sodium 100 Mcg Tablet) 100 mcg PO ACBR [facility] Stop: 11/21/25 07:59 Last Admin: 10/22/25 07:50 Dose: 100 mcg Metoprolol Succinate (Metoprolol Succinate Xl 25 Mg Tabcr) 25 mg PO QDAY [facility] Stop: 11/21/25 08:59 Last Admin: 10/22/25 09:18 Dose: 25 mg Ondansetron HCl (Ondansetron Inj 2 Mg/Ml Inj 2 Ml) 4 mg IVP Q6H PRN; Protocol PRN Reason: NAUSEA OR VOMITING Stop: 11/21/25 04:05 Discontinued Medications Diazepam (Diazepam 5 Mg Tablet) 5 mg PO X1 ONE Stop: 10/21/25 22:48 Last Admin: 10/22/25 00:21 Dose: 5 mg Levothyroxine Sodium (Levothyroxine Sodium 100 Mcg Tablet) 100 mcg PO BR [facility] Stop: 11/21/25 05:59 Last Admin: 10/22/25 09:25 Dose: Not Given Non-Formulary Medication (Nebivolol) 5 mg PO DAILY [facility] Stop: 11/21/25 08:59 Potassium Chloride (Potassium Chloride 20 Meq Tabcr) 40 meq PO X1 ONE Stop: 10/22/25 06:24 Last Admin: 10/22/25 06:29 Dose: 40 meq Assessment & Plan Plan Patient is 80 yr male with PMH of hypertension, hyperlipidemia, coronary artery disease status post stent placement 10-15 years ago, and hypothyroidism presented to the ED the evening of 10/21/2025 with chief complaint of tremors and hypertension. He is very poor historian even with language interpreter services used. Cardiology was consulted for new onset atrial fibrillation. #New onset atrial fibrillation, rate controlled Most likely cause of new onset A-fib in this patient could be due to hypertension history. Less likely due to any alcohol use, drug use or infection. Thyroid levels tested, also normal. EKG demonstrated patient to be in atrial fibrillation but rate controlled at 103. Troponins negative. UA was not significant, U tox negative for any substances. [id number] score 3 HAS bled 1-2 -start anticoagulant Eliquis 5 mg BID -watch for tachycarida -echo pending -sleep apnea test outpatient -patient should follow up with his lead neurodiagnostic technologist in [place] #Hypertension Per patient history Longstanding issue may be contributing to patient's new onset A-fib Presented with hypertension stage II 146/103 Resume home medications: -Amlodipine 5 mg daily -he appears to take nebivolol at home, switch agent to metoprolol succinate 25mg daily #Hypothyroidism Per patient history Patient takes levothyroxine TSH 4.2, free T4 1.37 Plan: -Restarted home levothyroxine 100 mcg daily #Hyperlipidemia Per patient history Lipid panel unremarkable Plan: -Atorvastatin 20 mg daily #Coronary artery disease status post stent placement Patient mentions that he had a stent placed in his heart in [place] 10-15 years ago Currently takes aspirin and follows lead neurodiagnostic technologist in [place], next appointment is in February 2026 Plan: -Aspirin 81 mg daily #Lower extremity swelling ED physician had concern for lower extremity swelling, ordered lower extremity venous Doppler to rule out DVT Plan: -US LE negative for DVT Primary care team to manage above conditions and ongoing care needs. The patient's management plan was discussed with my attending physician Dr. Schofield. Kassi Gilbert, PGY-2
[2025-10-22] MEDS: MELATONIN 3 MG TABLET 6 MG PO (20:25)
[2025-10-22] MEDS: APIXABAN 2.5 MG TABLET 5 MG PO (20:25)
[2025-10-23] VITALS (7 sets, daily range): BP systolic 118–131; BP diastolic 73–91; PULSE 76–106; RESP 14–19; TEMP 36.4–36.8; O2SAT 95–97; BMI 24.4
[2025-10-23] MEDS: LEVOTHYROXINE SODIUM 100 MCG TABLET PO (05:18)
[2025-10-23 06:14] LABS: Basophils # (Auto) 0.0 Thou/mm3 (0.0-0.2); Basophils % (Auto) 0 % (0-2.5); Eosinophils # (Auto) 0.2 Thou/mm3 (0.0-0.5); Eosinophils % (Auto) 3 % (0-10); Hematocrit 40.5 % (41.0-53.0); Hemoglobin 14.2 g/dL (13.5-16.0); Immature Granulocytes Auto 0.01 Thou/mm3 (0.00-0.00); Lymphocytes # (Auto) 1.7 Thou/mm3 (1.0-4.8); Lymphocytes % (Auto) 28 % (10-50); Mean Corpuscular HGB Conc 35.1 g/dl (31.0-37.0); Mean Corpuscular Hemoglobin 31.0 pg (25.0-35.0); Mean Corpuscular Volume 88 fL (80-100); Monocytes # (Auto) 0.5 Thou/mm3 (0.0-0.8); Monocytes % (Auto) 9 % (0-12); Neutrophils # (Auto) 3.6 Thou/mm3 (1.8-7.7); Neutrophils % (Auto) 59 % (37-80); Nucleated Red Blood Cell # 0.00 Thou/mm3 (0.00-0.00); Nucleated Red Blood Cell % 0 /100 WBC (0); Platelet Count 173 Thou/mm3 (140-440); RDW Standard Deviation 41.0 fL (35.1-43.9); Red Blood Count 4.58 Miln/mm3 (4.50-5.90); White Blood Count 6.1 Thou/mm3 (3.8-10.6)
[2025-10-23 06:51] LABS: Alanine Aminotransferase 15 U/L (10-49); Albumin, Serum 3.9 gm/dL (3.4-4.8); Albumin/Globulin Ratio 1.4 (1.2-2.2); Alkaline Phosphatase 76 U/L (46-116); Anion Gap 9 (7-16); Aspartate Amino Transferase 17 U/L (0-34); BUN/Creatinine Ratio 15 Ratio (12-20); Bilirubin,Total 1.2 mg/dL (0.3-1.2); Blood Urea Nitrogen 15 mg/dL (9-23); Calcium 8.5 mg/dL (8.3-10.6); Calcium (Corrected) 8.6 mg/dL (8.5-10.1); Carbon Dioxide 22.2 mMol/L (20.0-31.0); Chloride 110 mMol/L (98-107); Creatinine (Component) 1.0 mg/dL (0.6-1.3); Estimated Creatinine Clearance 48.5 mL/min (>60); Globulin 2.7 gm/dL (2.3-3.5); Glucose 90 mg/dL (74-106); Magnesium 2.0 mg/dL (1.6-2.6); Osmolality,Calculated 282 (275-295); Phosphorous 3.4 mg/dL (2.4-5.1); Potassium 3.8 mMol/L (3.4-5.1); Sodium 141 mMol/L (136-145); Total Protein 6.6 gm/dL (5.7-8.2); eGFR > 60 See Note
[2025-10-23] MEDS: ASPIRIN EC 81 MG TABEC PO (08:41)
[2025-10-23] MEDS: METOPROLOL SUCCINATE XL 25 MG TABCR PO (08:42)
[2025-10-23] MEDS: APIXABAN 2.5 MG TABLET 5 MG PO (08:42)
[2025-10-23] MEDS: ATORVASTATIN CALCIUM 10 MG TABLET 20 MG PO (08:42)
[2025-10-23 08:53] LABS: Glucose Estimated Average 108 mg/dL (80-131); Hemoglobin A1C 5.4 % Hgb (4.8-6.0)
--- NOTE | 2025-10-23 09:40 | ESDS_ITS ---
<Statement entered by Jerry Morris MD - 10/23/25 16:30> Patient was seen and examined at bedside. Patient came with tremor, and elevated blood pressure. Found to have new onset A-fib troponins were negative EKG did not show any ischemic changes. We started the patient on Eliquis 5 mg twice daily. We added for the patient metoprolol succinate 25 mg p.o. daily and we stopped the patient Nebivolol 5 mg. This patient was continued also on his aspirin 81 mg p.o. Patient was recommended to follow-up in outpatient. Please look at the note instructions for further information. - Patient's plan and care discussed with my attending, Dr. Jatinder Morris MD Internal Medicine PGY-3 Planned Discharge Date 10/23/25 DS: Providers Provider Date of admission: 10/22/25 04:06 Primary care physician: Physician Cruz Primary/Family Admitting Provider: Andriy Lugo DO Attending Provider on Admission: Andriy Lugo DO Consults: 10/22/25 06:32 Consult to Cardiology Routine Comment: New onset afib Consulting Provider: Bogdan Schofield Attending Provider on DC: Kota Tobias MD Discharging Provider: Kota Tobias MD DS: Diagnosis Problem List Completed Was Problem List Reviewed/Reconciled?: Yes Hospital Course Hospital Course Hospital course: 80-year-old [place]-speaking male past medical history of hypertension, hyperlipidemia, coronary artery disease status post stent placement 10-15 years ago, and hypothyroidism presented to the ED at [facility] evening of 10/21/2025 with chief complaint of tremors and hypertension, admitted for new onset a-fib. Patient's EKG showed A-fib that was rate controlled. Patient's troponins were negative. Patient states he sees his lead applier every 6 months in [place]. Pat ient was started on eliquis 5 mg bid and was sent a prescription for it outpatient. Patient was also switched from nebivolol to metoprolol 25 mg every day. Patient was informed of these changes. Patient informed that the eliquis is being used as an anti-coagulant and is important to use with a-fib. Informed patient that eliquis has a risk of bleeding and if it is abruptly stopped then it can increase the risk of stroke. He was informed that he can request medical records from the hospital so that way he can inform his doctors in [place] for continuity of care. Patient discharged in clinically stable status. Discharge Instructions: - Contact Medical Records Department to obtain and give to Doctors in [place] - We prescribed you metoprolol for rhythm control of afib - We discontinued your nebivolol, replaced with metoprolol - Follow up with your lead applier and pcp within 2 weeks ? Continue taking all other home medications as prescribed ? Follow-up with PCP within 1-2 weeks of discharge ? If you do not have a PCP, you can follow-up at the [facility] (you can call [phone] to make an appointment) ? Return to ED if symptoms worsen or recur #New Onset A-fib #Hypertension #Hypothyroidism #Hyperlipidemia #Coronary artery disease status post stent placement #Lower extremity swelling Patient plan of care was discussed with the attending physician, Dr. Tobias & senior resident Dr. Alexandra Soto MD PGY-1 Time Spent with Patient Time attestation: Total time spent providing and/or coordinating discharge services: Time spent: Greater than 30 minutes Exam Vital Signs Temp Pulse Resp BP Pulse Ox O2 Del Method 98.3 F 76 18 118/79 95 Room Air 10/23/25 07:41 10/23/25 08:42 10/23/25 07:41 10/23/25 08:42 10/23/25 07:41 10/23/25 07:41 Narrative Exam General: No acute distress; A&Ox3 Skin: Warm, dry, intact, no obvious rash. HENT: NCAT, EOMI/PERRL, not icteric. External ears normal. No rhinorrhea. Moist mucous membranes Cardiovascular: Irregular rhythm, regular rate, no murmur, +S1/S2. Respiratory: Lungs CTAB GI: Soft, nontender, non-distended. No guarding or rebound tenderness. : No suprapubic tenderness. No flank tenderness bilaterally. Extremities: no edema, no cyanosis, no clubbing. Extremity pulses present Neuro: Grossly nonfocal. Moving all 4 extremities. CN not formally tested but appear grossly intact. Psychiatric: Cooperative, appropriate affect. Discharge Plan Plan Patient Disposition: HOME (Self Care) Patient condition on transfer: Stable Care Plan Goals: - Contact Medical Records Department to obtain and give to Doctors in [place] - We prescribed you metoprolol for rhythm control of afib - We discontinued your nebivolol, replaced with metoprolol - Follow up with your lead applier and pcp within 2 weeks ? Continue taking all other home medications as prescribed ? Follow-up with PCP within 1-2 weeks of discharge ? If you do not have a PCP, you can follow-up at the [facility] (you can call [phone] to make an appointment) ? Return to ED if symptoms worsen or recur Prescriptions/Referrals Prescriptions/Med Rec: New apixaban 5 mg tablet 5 mg PO BID 30 Days Qty: 60 0RF metoprolol succinate 25 mg Tablet Extended Release 24 Hr 25 mg PO QDAY 30 Days Qty: 30 0RF Continued amlodipine 5 mg tablet 5 mg PO QDAY isosorbide mononitrate 10 mg tablet 20 mg PO BID Rx Instructions: give doses 7 hrs apart atorvastatin [Lipitor] 20 mg tablet 20 mg PO QPM montelukast 10 mg tablet 10 mg PO QDAY melatonin 5 mg capsule 5 mg PO QHSPRN alprazolam 0.25 mg tablet 0.25 mg PO QDAY aspirin 81 mg tablet 81 mg PO QDAY Discontinued nebivolol 5 mg tablet 2.5 mg PO .q 12 Referrals: No Primary/Family,Physician [Primary Care Provider] Patient/Caregiver Discharge Instructions Education Materials: AFL/Afib, Stroke Prevent Live W Atrial Fib, Understanding Atrial Fibrillation Print Language: [place] Stand Alone Forms: Rosanna Award Info., Patient Portal Info Letter Discharge Order Discharge Orders: Discharge (Routine); Ordered 10/23/25 Ordered By: Rodriguez Hargrove Ksreyna Quality Discharge Quality Measures VTE prophylaxis Attestestation Attestation I have examined the patient, reviewed labs and imaging findings, discussed the case with the resident(s), and reviewed entered orders. I agree with the plan of care as outlined in this note. Time Spent: [address] Jatinder MD
--- NOTE | 2025-10-23 11:41 | PC.SS ---
INSPECTOR FIBROUS WALLBOARD conducted bedside contact with the patient conduct initial assessment and to discuss discharge planning.? INSPECTOR [employer]IBROUS WALLBOARD utilized translation services to assist with discussion.? Patient in INSPECTOR [employer]ALL[employer] that he resides in [place] with family.? Patient visiting family in [facility] upon admission.? Patient does not utilize DME to assist with ambulation.? Patient does not possess home oxygen.? Patient describes the ability to complete ADL?s independently.? Patient identified daughter, Tova Orozco ; surrogate medical decision maker.? Patient?s daughter present at bedside with patient.? Patient possesses PCP services in [place] to include production shift supervisor.? If patient is prescribed medications at the time of discharge local pharmacy [facility] will be designated pharmacy of choice.? INSPECTOR FIBROUS WALLBOARD updated bedside nurse to pharmacy preference.? Plan is for the patient to return home at the time of discharge.? Family will provide transportation on behalf of the patient.? No further discharge needs identified by the patient.? No further intervention required at this time, older adult social work specialist will be available to address any further concerns.? Next of Kin: Tova Orozco D/C Plan: Home
== END 2025-10-23 12:45 | disposition home or self-care (01) | DRG 201 ==
LOC: SERX 10-22 04:22 → SERHOLD 10-22 04:28 → S2NX 10-22 14:58
PROVIDERS: Physician Assistant; Student in an Organized Health Care Education/Training Program; Admitting Provider Internal Medicine; Emergency Provider Emergency Medicine; Visit Provider Internal Medicine
DX: I48.91 Unspecified atrial fibrillation (principal); I10 Essential (primary) hypertension; F41.9 Anxiety disorder, unspecified; E78.5 Hyperlipidemia, unspecified; I25.10 Atherosclerotic heart disease of native coronary artery without angina pectoris; I49.3 Ventricular premature depolarization; M79.89 Other specified soft tissue disorders; E03.9 Hypothyroidism, unspecified; Z79.01 Long term (current) use of anticoagulants; Z79.890 Hormone replacement therapy; Z79.899 Other long term (current) drug therapy; Z95.5 Presence of coronary angioplasty implant and graft; Z79.82 Long term (current) use of aspirin
CPT/HCPCS: 36415; 70450; 71045; 80053; 80061; 80307; 80320; 81001; 83036; 83735; 83880; 84100; 84439; 84443; 84484; 85025; 85379; 85610; 85730; 87502; 87635; 93005; 93306; 93970; 99284; J1650; A9270; G0480